=== PATIENT | female | born 2000 | race Two or more races ===

== ENCOUNTER 2024-08-16 11:17 | Emergency (ER) | payer MEDICAID, SELFPAY ==
--- NOTE | 2024-08-16 11:46 | XR_ITS ---
Examination: Complete OB ultrasound greater than 14 weeks Date and time of exam: August 16, 2024 1243 hours INDICATIONS: Onset of pelvic pain and vaginal bleeding today Findings: Viable intrauterine single fetus with single amniotic sac presentation cephalic Cardiac motion 138 BPM Placenta posterior grade 1 Umbilical cord insertion 3 vessel seen Amniotic fluid adequate spine maternal right Cervix 4.4 cm Ovaries obscured by bowel gas Incidental note 9 x 5 x 7 mm cyst in the soft tissue left neck. Composite estimated gestational age based on BPD, head circumference, abdominal circumference, femur length is 16 weeks 4 days Estimated weight 154 g. Survey of intracranial anatomy, spinal anatomy, abdominal anatomy, four-chamber heart performed with no abnormalities identified. Impression: Viable intrauterine gestation cephalic presentation Recommend two-week follow-up pelvic sonography to document stability of small cyst in the soft tissue left neck.
[2024-08-16 11:48] VITALS: BP 102/65; PULSE 99; RESP 16; TEMP 36.9; O2SAT 99; BMI 19.5
--- NOTE | 2024-08-16 11:48 | EDNOTE_ITS ---
ED OB Contraction Preg RMI/HPI General Chief complaint: OB/Uterine Contractions Stated complaint: VAGINAL BLEEDING/ CRAMPING X 1 DAY; PREG 3-4 MOS Time Seen by Provider: 08/16/24 11:36 Source: patient Arrival date/time: 08/16/24 11:17 24-year-old female with no known medical history presents to the emergency room with a chief complaint of vaginal bleeding and abdominal cramping x 2 days. Patient does not know her last menstrual period, and states she is roughly around 12 weeks . She is a G1, P0. Mode of arrival: ambulatory Limitations: no limitations Related Data Allergies Allergy/AdvReac Type Severity Reaction Status Date / Time No Known Allergies Allergy Verified 08/16/24 11:23 Review of Systems Review of Systems Systems Reviewed: All systems reviewed, normal except as documented Constitutional Constitutional: Reports system reviewed and no additional complaints, except as documented, Denies fatigue, Denies fever(s), Denies headache(s) and Denies weakness Eyes Eyes: Reports system reviewed and no additional complaints, except as documented, Denies blurry vision and Denies change in vision ENT Ears, Nose, Mouth, and Throat: Reports system reviewed and no additional complaints, except as documented, Denies otalgia, Denies headache(s), Denies nasal congestion, Denies throat swelling and Denies vertigo Cardiovascular Cardiovascular: Reports system reviewed and no additional complaints, except as documented, Denies chest pain, Denies dyspnea and Denies dyspnea on exertion Respiratory Respiratory: Reports system reviewed and no additional complaints, except as documented, Denies chest congestion, Denies cough, Denies dyspnea, Denies dyspnea on exertion and Denies wheezing Gastrointestinal Gastrointestinal: Reports system reviewed and no additional complaints, except as documented, Reports abdominal pain, Reports cramping, Denies nausea and Denies vomiting Genitourinary Genitourinary: Reports system reviewed and no additional complaints, except as documented Musculoskeletal Musculoskeletal: Reports system reviewed and no additional complaints, except as documented and Denies back pain Integumentary/Breasts Skin/Breast: Reports system reviewed and no additional complaints, except as documented and Denies wounds Neurologic Neurologic: Reports system reviewed and no additional complaints, except as documented, Denies confusion, Denies headache(s), Denies lack of coordination, Denies vertigo and Denies weakness Psychiatric Psychiatric: Reports system reviewed and no additional complaints, except as documented, Denies anxiety, Denies confusion, Denies depression, Denies paranoia, Denies suicidal ideation and Denies tactile hallucinations Endocrine Endocrine: Reports system reviewed and no additional complaints, except as documented and Denies fatigue Hematologic/Lymphatic Hematologic/Lymphatic: Reports system reviewed and no additional complaints, except as documented and Denies lymphadenopathy Allergic/Immunologic Allergic/Immunologic: Reports system reviewed and no additional complaints, except as documented, Denies throat swelling, Denies urticaria and Denies wheezing ED Exam General Limitations: Present no limitations General appearance: Present alert and in no apparent distress Head Head exam: Present atraumatic Eye Eye exam: Present normal appearance, PERRL and EOMI ENT ENT exam: Present normal exam, normal oropharynx and mucous membranes moist Neck Neck exam: Present normal inspection, full ROM and trachea midline Chest Chest inspection: Present normal inspection and symmetric chest wall rise Respiratory Respiratory exam: Present normal lung sounds bilaterally Cardiovascular Cardiovascular exam: Present regular rate, normal rhythm and normal heart sounds Abdominal Exam Abdominal exam: Present soft, tenderness and normal bowel sounds Abdominal tenderness: Present suprapubic and mild Extremities Exam Extremities exam: Present normal inspection and full ROM Back Exam Back exam: Present normal inspection and full ROM Neurological Exam Neurological exam: Present alert, oriented X3 and CN II-XII intact Psychiatric Psychiatric exam: Present normal affect and normal mood Skin Skin exam: Present warm, dry, intact and normal color Course Quality Measures none Orders Category Date Time Status US OB >= 14 weeks Fetus Stat Exams 08/16/24 11:46 Completed ABO/RH Type Stat Lab 08/16/24 12:12 Completed Beta HCG,Quantitative Stat Lab 08/16/24 12:12 Completed CBC Stat Lab 08/16/24 12:12 Completed CMP [Comprehensive Metabolic Panel] Stat Lab 08/16/24 12:12 Completed Vital Signs Vital signs: Vital Signs Temperature 98.5 F 08/16/24 11:48 Pulse Rate 99 08/16/24 11:48 Respiratory Rate 16 08/16/24 11:48 Blood Pressure 102/65 08/16/24 11:48 Pulse Oximetry (%) 99 08/16/24 11:48 Oxygen Delivery Method Room Air 08/16/24 11:48 O2 saturation within normal limits OB/Uterine Contractions MDM Narrative MDM Narrative:: 24-year-old female with no known medical history presents to the emergency room with a chief complaint of vaginal bleeding and abdominal cramping x 2 days. Patient does not know her last menstrual period, and states she is roughly around 12 weeks . She is a G1, P0. Ultrasound OB was completed and shows a viable intrauterine gestation in cephalic presentation. heart tones are 130 bpm the patient is currently 16 weeks and 4 days. hCG levels are 71,409 Patient was discharged and educated to follow-up with primary care provider in the next 24 to 48 hours and return to the emergency room for any evidence of worsening signs or symptoms Patient data External records reviewed:: [facility] previous records Clinical information provided by:: patient Social determinants that could affect healthcare access:: none Patient has the following chronic illnesses:: No chronic illness How is presenting disease/condition affected by chronic disease/condition?: no chronic disease Evaluation data The following diagnostics were reviewed and interpreted by me:: lab results and radiology exam(s) Lab and/or radiology exams considered but not ordered:: Labs and radiology exams considered and ordered Interpretation Summary: Ultrasound OB-Findings: Viable intrauterine single fetus with single amniotic sac presentation cephalic Cardiac motion 138 BPM Placenta posterior grade 1 Umbilical cord insertion 3 vessel seen Amniotic fluid adequate spine maternal right Cervix 4.4 cm Ovaries obscured by bowel gas Incidental note 9 x 5 x 7 mm cyst in the soft tissue left neck. Composite estimated gestational age based on BPD, head circumference, abdominal circumference, femur length is 16 weeks 4 days Estimated weight 154 g. Survey of intracranial anatomy, spinal anatomy, abdominal anatomy, four-chamber heart performed with no abnormalities identified. Impression: Viable intrauterine gestation cephalic presentation Recommend two-week follow-up pelvic sonography to document stability of small cyst in the soft tissue left neck. Medications / Prescriptions Medications or Prescriptions considered but not ordered:: No medication given Medication administrations:: No medication given Consultations Consultation(s) initiated? (list below): No Diagnosis OB Contractions Differential Diagnosis: other (Abdominal cramping in /threatened /spontaneous /) Most likely diagnosis given after review of the tests above:: Abdominal cramping in Admission Indicated Admission indicated?: not indicated Explain why admission is indicated or not indicated:: N/A Admission Request Was there a request for admission?: No Disposition Plan Disposition Plan: Discharge Discharge Attestation Discharge Attestation: The patient and all family members were given an opportunity to ask questions and understood the discharge instructions. Discharge instructions specifically effects, indications for sooner follow up or return to the emergency department, and the expected course of current diagnosis. Patient condition: Stable Discharge Plan Plan Patient Disposition: HOME (Self Care) Disposition Comment: Stable Prescriptions/Referrals Referrals: No Primary/Family,Physician [Primary Care Provider] - In 1 week Problem List Clinical Impression: Abdominal cramping affecting Patient/Caregiver Discharge Instructions Education Materials: Comfort Tips During Additional Instructions: Please follow-up with your SOFTWARE DEVELOPMENT PROJECT MANAGER in the next 24 to 48 hours. For any evidence of worsening signs or symptoms return to the emergency room immediately Print Language: French Stand Alone Forms: Jazlyn Award Info., Patient Portal Info Letter PA/EQUIPMENT MECHANIC SPECIALIST Supervising Physician PA/EQUIPMENT MECHANIC SPECIALIST Supervising Physician: Dr. Leonard
[2024-08-16 12:34] LABS: Basophils % (Auto) 0 % (0-2.5); Eosinophils # (Auto) 0.1 Thou/mm3 (0.0-0.5); Eosinophils % (Auto) 1 % (0-10); Hematocrit 33.8 % (36.0-46.0); Hemoglobin 11.6 g/dL (12.0-16.0); Immature Granulocytes % (Auto) 0 % (0-0); Immature Granulocytes Auto 0.02 Thou/mm3 (0.00-0.00); Lymphocytes % (Auto) 26 % (10-50); Mean Corpuscular HGB Conc 34.3 g/dl (31.0-37.0); Mean Corpuscular Volume 93 fL (80-100); Monocytes # (Auto) 0.5 Thou/mm3 (0.0-0.8); Monocytes % (Auto) 6 % (0-12); Neutrophils # (Auto) 5.3 Thou/mm3 (1.8-7.7); Neutrophils % (Auto) 67 % (37-80); Nucleated Red Blood Cell % 0 /100 WBC (0); Platelet Count 247 Thou/mm3 (140-440); RDW Standard Deviation 43.5 fL (36.4-46.3); Red Blood Count 3.62 Miln/mm3 (4.00-5.20)
[2024-08-16 13:11] LABS: Alanine Aminotransferase 22 U/L (10-49); Albumin, Serum 3.9 gm/dL (3.5-5.0); Albumin/Globulin Ratio 1.5 (1.2-2.2); Alkaline Phosphatase 62 U/L (46-116); Anion Gap 10 (7-16); Aspartate Amino Transferase 25 U/L (0-34); BUN/Creatinine Ratio 10 Ratio (12-20); Bilirubin,Total 0.3 mg/dL (0.3-1.2); Blood Urea Nitrogen 5 mg/dL (9-23); Calcium 8.8 mg/dL (8.3-10.6); Calcium (Corrected) 8.9 mg/dL (8.5-10.1); Carbon Dioxide 22.4 mMol/L (20.0-31.0); Chloride 104 mMol/L (98-107); Creatinine (Component) 0.5 mg/dL (0.6-1.3); Estimated Creatinine Clearance 130.6 mL/min (>60); Globulin 2.6 gm/dL (2.3-3.5); Glucose 81 mg/dL (74-106); Osmolality,Calculated 268 (275-295); Potassium 3.7 mMol/L (3.4-5.1); Sodium 136 mMol/L (136-145); Total Protein 6.5 gm/dL (5.7-8.2); eGFR > 60 See Note
== END 2024-08-16 14:34 | disposition home or self-care (01) ==
PROVIDERS: Nurse Practitioner Family; Emergency Provider Emergency Medicine
DX: O26.891 Other specified pregnancy related conditions, first trimester (principal); Z3A.12 12 weeks gestation of pregnancy; R10.9 Unspecified abdominal pain
CPT/HCPCS: 36415; 76805; 80053; 81001; 84702; 85025; 86900; 86901; 99284

== ENCOUNTER 2024-09-01 10:56 | Outpatient (AMB) | payer MEDICAID, SELFPAY ==
--- NOTE | 2024-09-01 11:30 | OBCLNT_ITS ---
Vital Signs 09/01/24 11:31 Height 1.55 m Height Method Stated Weight 49.895 kg Weight Measurement Method Standing Scale BMI 20.7 BP 99/85 H Blood Pressure Source Automatic Cuff Blood Pressure Location Left Upper Arm Position Sitting Respiration 18 Pulse 71 Pulse Source Monitor Temp 97.2 F Temp Source Oral Pulse Oximetry (%) 98 Oxygen Delivery Method Room Air Allergies/Home Meds Allergies & Medications Allergies No Known Allergies Allergy (Verified 09/01/24 11:43) Medication Reconciliation No Known Home Medications 09/01/24 [History Confirmed 09/01/24] Intake Visit Data Collection New Patient or Established: Established Patient (seen at [facility] within 3 years) Reason for Visit:: New OB Seen by Clinical Staff ONLY (RN/MA): No Tumbler Tender Required: Yes Tumbler Tender's name/title: YENY GONSALEZ/ CREDIT REFERENCE CLERK Do You Feel Safe at Home: Yes Authorities Contacted: N/A PCP or OBGYN visit in last 3 months: Yes Date of Last PCP or OBGYN visit: 08/16/24 Hx Now: Yes Are you currently on any form of Control: No Pain Present Currently: No Pain Scale Used: Buchanan-Watson/Numerical Pain scale:: 0 Smoking Status Smoking Status: Never smoker Questionnaires Covid-19 Vaccine Questionnaire Has patient been vacinated for Covid-19 Have you been vacinated for Covid-19: Yes PHQ-9 PHQ-2 Over the last 2 weeks, how often have you been bothered by any of the following problems? 1. Little interest or pleasure in doing things: not at all 2. Feeling down, depressed, or hopeless: not at all Total score: 0 PHQ-9 3. Trouble falling or staying asleep, or sleeping too much: Not at all 4. Feeling tired or having little energy: Not at all 5. Poor appetite or overeating: Not at all 6. Feeling bad about yourself - or that you are a failure or have let yourself or your family down: Not at all 7. Trouble concentrating on things, such as reading the newspaper or watching television: Not at all 8. Moving or speaking so slowly that other people could have noticed? - Or the opposite - being so fidgety or restless that you have been moving around a lot more than usual: not at all 9. Thoughts that you would be better off or of hurting yourself in some way: Not at all Total score: 0 If you checked off any problems, how difficult have these problems made it for you to do your work, take care of things at home, or get along with other people?: not difficult at all Source: Developed by Drs. Thang Marsh, Cece Saleem, Stanley Rivera and colleagues, with an educational miguelina from [employer]. Depression screen completed yes Social History Living Situation History Marital Status: Lives With: Family Housing: House Tobacco History Smoking Status: Never smoker Alcohol History Alcohol Intake: Never Domestic Abuse History Do You Feel Safe at Home: Yes Past Medical History Past Medical History Have you ever been diagnosed with any of the following: History of Present Illness HPI Narrative Ludmila Schneider, a 24-year-old female, presents to establish care. She was recently seen in the emergency room on 08-16-2024 with complaints of pelvic pain and vaginal bleeding. At that time, an ultrasound confirmed an intrauterine of 16 weeks and 4 days. The ultrasound also incidentally noted a 9x5x7 mm cyst in the soft tissue of the neck. Based on that ultrasound, she is now estimated to be 18 weeks and 6 days gestation with an estimated due date of January 27, 2025. The patient reports that the vaginal bleeding she experienced during her ER visit has now stopped. This is her first . She is not currently taking PNVs OB Initial Visit OB Flowsheet OB Flowsheet Initial Weight: Not Recorded Date -?-?-?-?-?-?-?-?-?-?-?-?- EGA Weight Edema CTX Effacement BP Fundal ht Pres Dilation Effacement Station Visit Note Alb Glu FHR Mov 09/01/24 -?-?-?-?-?-?-?-?-?-?-?-?- 18w 6d 49.895 kg 99/85 . New OB visit. NIPT, labs, PNVs. . New OB visit. NIPT, Pr enatal labs, PNVs. Educated the patient on the importance o f care, including taking vitamins with folic acid, iron, and calcium. Emphasized avoiding alcohol, smoking, and certain medications. Discussed common symptoms like nausea and fatigue, advising small, frequent meals and adequate hydration. Explained the need for regular check-ups and recommended safe physical activities. Instructed on signs of complications, such as severe cramping or bleeding, and when to seek immediate medical attention. Highlighted the importance of a balanced diet and avoiding high-risk foods. Encouraged open communication about any concerns or questions. Encouraged keeping up with all appointments and tests. 167 Menstrual History Menstrual reliability: definite Flow: normal Menstrual regularity: regular Monthly: Yes On control pills at conception: No OB History : 1 Para: 0 Infection History & Risk Evaluation History of STDs: none HIV risk evaluation: low risk Hepatitis B risk evaluation: low risk Patient or partner has history of Genital Herpes: No Varicella/chicken pox status: immunized Genetic Screening & History Genetic Screening/Teratology Counseling - Includes patient, baby's father, or anyone in either family with: 1. Patient's age 35 years or older as of estimated date of delivery: No 2. Thalassemia (Bengali, [place]er, Mediterranean, or Background); MCV less than 80: No 3. Neural Tube Defect (Meningomyelocele, Spina Bifida, or Anencephaly): No 4. Congenital Heart Defect: No 5. Down Syndrome: No 6. Bernardo-Sachs (Ashkenazi [place]ian, Cajun, Romanian St [place]ian): No 7. Cherrie Disease (Ashkenazi [place]ian): No 8. Familial Dysautonomia (Ashkenazi Presyb[place]ian): No 9. Sickle Cell Disease or Trait (): No 10. Hemophilia or other blood disorders: No 11. Muscular Dystrophy: No 12. Cystic Fibrosis: No 13. [place]'s Chorea: No 14. Mental Retardation/Autism: No 15. Other inherited genetic or chromosomal disorder: No 16. Maternal Metabolic Disorder (EG,TYPE 1 Diabetes, PKU): No 17. Patient or baby's father had a child with defects not listed above: No 18. Recurrent loss or a stillbirth: No 19. Medications (including supplements, vitamins, herbs or otc drugs)/illicit/recreational drugs/alcohol since last menstrual period: No 20. Any other: No Infection History 1. Live with someone with TB or exposed to TB: No 2. Rash or viral illness since last menstrual period: No 3. Hepatitis B,C: No Other (see comments) Source: [employer] Exam General Limitations: no limitations General Appearance: alert, in no apparent distress, comfortable, cooperative, healthy appearing, well developed and well groomed Head Head exam: atraumatic, normocephalic and normal inspection Neck Neck exam: Present normal inspection, full ROM and trachea midline Chest Chest inspection: Present normal inspection and symmetric chest wall rise Abdominal Abdominal exam: Present soft and normal bowel sounds Back Back exam: Present normal inspection and full ROM Psych Psychiatric exam: Present normal affect and normal mood Skin Skin exam: Present warm, dry, intact and normal color Assessment & Plan Diagnosis / Problem List (1) Supervision of high risk , unspecified, first trimester: Status: Acute (2) Maternal care for (suspected) central nervous system malformation or damage in fetus, unspecified, not applicable or unspecified: Status: Acute Plan Intrauterine at 18 weeks 6 days Patient is a 24-year-old presenting for initial care. Based on the ultrasound performed in the ER on 08/16/2024, the patient was noted to have an intrauterine of 16 weeks 4 days. Current gestational age is calculated at 18 weeks 6 days with an estimated due date of January 27, 2025. A quick bedside ultrasound was performed today, confirming cardiac activity and gestational age of approximately 19 weeks. - Perform NIPT (Non-Invasive Testing) - Prescribe vitamins to be filled at [facility] pharmacy - Schedule follow-up appointment in 4 weeks - Complete necessary lab work (specifics not mentioned in transcript) neck cyst Incidental finding of a 9x5x7 mm cyst in the soft tissue of the neck was noted during the ER ultrasound on 08/16/2024. - No specific plan discussed for this finding in the transcript History of pelvic pain and vaginal bleeding Patient was seen in the ER on 08/16/2024 with complaints of pelvic pain and vaginal bleeding. During today's visit, it was confirmed that the bleeding has now stopped. - No specific plan discussed for this resolved issue Office Procedures OB Clinic LOC & Office Proc's Nursing/Assessment Patient Status: Established Patient OB Clinic Nursing Assessment: BP Monitoring, Medication Reconciliation, Update PMH in EMR and Vital Signs OB Clinic Coordination of Care: Consent,records obtained, informed consent, Education Simp Pt/Fam, Lab and Imaging orders and Staff clarify orders Established Patient Charge Established Patient Point Assignment: 90 Established Patient Point Charge: EP Level 3 (80-115) Bedside Ultrasounds US Transabdominal >14 weeks at bedside: Yes
[2024-09-01 11:31] VITALS: BP 99/85; PULSE 71; RESP 18; TEMP 36.2; O2SAT 98; BMI 20.7
== END 2024-09-01 11:42 | disposition home or self-care (01) ==
LOC: HODSOBC 10:56
PROVIDERS: Supervising Provider Obstetrics & Gynecology; Visit Provider Obstetrics & Gynecology
DX: O09.892 Supervision of other high risk pregnancies, second trimester (principal); O35.00X0 Maternal care for (suspected) central nervous system malformation or damage in fetus, unspecified, not applicable or unspecified; O33.7XX0 Maternal care for disproportion due to other fetal deformities, not applicable or unspecified; Z3A.18 18 weeks gestation of pregnancy
CPT/HCPCS: 76805; 99213; G0463

== ENCOUNTER 2024-09-07 14:59 | Outpatient (AMB) | payer MEDICAID, SELFPAY ==
[2024-09-07 15:17] VITALS: BP 92/64; PULSE 71; RESP 14; TEMP 36.6; O2SAT 98; BMI 20.6
--- NOTE | 2024-09-07 15:17 | AMB.GYNCLNOT ---
Vital Signs 09/07/24 15:17 Height 1.55 m Height Method Stated Weight 49.555 kg Weight Measurement Method Standing Scale BMI 20.6 BP 92/64 Blood Pressure Source Automatic Cuff Blood Pressure Location Left Upper Arm Position Sitting Respiration 14 Pulse 71 Pulse Source Monitor Temp 97.9 F Temp Source Oral Pulse Oximetry (%) 98 Oxygen Delivery Method Room Air Allergies/Home Meds Allergies & Medications Allergies No Known Allergies Allergy (Verified 09/07/24 15:19) Medication Reconciliation vitamins with calcium no.72-iron 29 mg-folic acid 1 mg tablet ( Plus) 1 tab PO QDAY 90 days #90 tabs 09/07/24 [Rx] Intake Visit Data Collection New Patient or Established: Established Patient (seen at [facility] within 3 years) Reason for Visit:: Follow-up from previous visit, abnormal NIPT result positive for trisomy 21 Seen by Clinical Staff ONLY (RN/MA): No Studio Operation Engineer Required: Yes Studio Operation Engineer's name/title: YENY GONSALEZ Do You Feel Safe at Home: Yes Authorities Contacted: N/A PCP or OBGYN visit in last 3 months: Yes Hx Now: Yes Are you currently on any form of Control: No Pain Present Currently: No Pain Scale Used: Buchanan-Watson/Numerical Pain scale:: 0 Smoking Status Smoking Status: Never smoker Assisted Living Housekeeper history Assisted Living Housekeeper History Menstrual regularity: regular Flow: normal Monthly: Yes How many days does period last: 6 Age at menarche: 14 Currently sexually active: Yes Questionnaires Covid-19 Vaccine Questionnaire Has patient been vacinated for Covid-19 Have you been vacinated for Covid-19: Yes PHQ-9 PHQ-2 Over the last 2 weeks, how often have you been bothered by any of the following problems? 1. Little interest or pleasure in doing things: not at all 2. Feeling down, depressed, or hopeless: not at all Total score: 0 PHQ-9 3. Trouble falling or staying asleep, or sleeping too much: Not at all 4. Feeling tired or having little energy: Not at all 5. Poor appetite or overeating: Not at all 6. Feeling bad about yourself - or that you are a failure or have let yourself or your family down: Not at all 7. Trouble concentrating on things, such as reading the newspaper or watching television: Not at all 8. Moving or speaking so slowly that other people could have noticed? - Or the opposite - being so fidgety or restless that you have been moving around a lot more than usual: not at all 9. Thoughts that you would be better off or of hurting yourself in some way: Not at all Total score: 0 Source: Developed by Drs. Thang Marsh, Cece Saleem, Stanley Rivera and colleagues, with an educational miguelina from [employer]. Depression screen completed yes Social History Living Situation History Lives With: Family Housing: House Tobacco History Smoking Status: Never smoker Alcohol History Alcohol Intake: Never Domestic Abuse History Do You Feel Safe at Home: Yes Past Medical History Past Medical History Have you ever been diagnosed with any of the following: History of Present Illness HPI Narrative Ludmila Russell presents for follow-up from a previous visit. The patient was noted to have a positive trisomy 21 result on her Non-Invasive Testing (NIPT). During the visit, Dr. Agosto informed the patient about the abnormal test result, specifically the positive screening for Down syndrome. The doctor explained that this is not a definitive test and has about a 50% accuracy rate when positive. The patient was advised that a confirmatory test is necessary, which could either confirm Down syndrome or come back negative. To proceed with the confirmatory testing, a referral has been made to [facility] in [place] for further evaluation and discussion of options. The patient inquired about vitamins that were previously prescribed, indicating some confusion or concern about her medication regimen. Dr. Agosto agreed to resend the prescription to the patient's pharmacy ([facility]). Medications and Supplements - vitamins Laboratory, Imaging, and Diagnostic Test Results - Date: 09/06/2024 - NIPT: Positive for trisomy 21 - panel: Within normal limits - Hepatitis B: Negative - Hepatitis C: Negative - HIV: Negative - RPR: Non-reactive - Rubella: Immune - Blood type: O positive - Antibody screen: Negative - Gonorrhea: Negative - Chlamydia: Negative - Hemoglobin: 10.8 g/dL - Platelets: 260 Review of Systems Review of Systems Systems Reviewed: All systems reviewed, normal except as documented Exam General Limitations: no limitations General Appearance: alert, in no apparent distress, comfortable, cooperative, healthy appearing, well developed and well groomed Head Head exam: atraumatic, normocephalic and normal inspection Neck Neck exam: Present normal inspection, full ROM and trachea midline Chest Chest inspection: Present normal inspection and symmetric chest wall rise Abdominal Abdominal exam: Present soft and normal bowel sounds Psych Psychiatric exam: Present normal affect and normal mood Skin Skin exam: Present warm, dry, intact and normal color Assessment & Plan Diagnosis / Problem List (1) Trisomy 21 of fetus in current [place] : Status: Acute (2) Supervision of high risk , unspecified, first trimester: Status: Acute (3) Maternal care for (suspected) central nervous system malformation or damage in fetus, unspecified, not applicable or unspecified: Status: Acute Plan Ludmila Russell presents for follow-up from a previous visit with a positive trisomy 21 result on her NIPT (non-invasive testing). Positive NIPT for Trisomy 21 Assessment: Patient's NIPT results indicate a positive screen for trisomy 21 (Down syndrome). The rest of her panel is within normal limits. gender is male. It is important to note that this is a screening test with approximately 50% accuracy when positive, necessitating confirmatory diagnostic testing. Plan: - Referral to [facility] in [place] for further evaluation and confirmatory testing - Discussed with patient that the positive NIPT result is not definitive and requires follow-up testing - Informed patient that [facility] will contact her to schedule the appointment - [facility] will discuss all results, explain confirmatory tests, and allow patient to choose next steps - Follow-up appointment scheduled in one month to review results and reports from the referral Routine Care Assessment: Patient's screening results include: hepatitis B-negative, hepatitis C-negative, HIV-negative, RPR non-reactive, rubella immune, blood type O positive, antibody screen negative, gonorrhea and chlamydia negative. Hemoglobin is 10.8 and platelets are 260. All labs were resulted on 09-06-2024. Plan: - Continue routine care - Resend prescription for vitamins to [facility] pharmacy Office Procedures OB Clinic LOC & Office Proc's Nursing/Assessment Patient Status: Established Patient OB Clinic Nursing Assessment: Medication Reconciliation, Update PMH in EMR and Vital Signs OB Clinic Coordination of Care: Complex Care and Chronic Disease 1-5, Consent,records obtained, informed consent, Education Simp Pt/Fam, Results/Orders obtained and Staff clarify orders Special Needs: Heart tones Established Patient Charge Established Patient Point Assignment: 120 Established Patient Point Charge: EP Level 4 (120-155)
== END 2024-09-07 15:45 | disposition home or self-care (01) ==
LOC: HODSOBC 14:59
PROVIDERS: Supervising Provider Obstetrics & Gynecology; Visit Provider Obstetrics & Gynecology
DX: O09.891 Supervision of other high risk pregnancies, first trimester (principal); Z3A.00 Weeks of gestation of pregnancy not specified; O35.13X0 Maternal care for (suspected) chromosomal abnormality in fetus, Trisomy 21, not applicable or unspecified; O35.00X0 Maternal care for (suspected) central nervous system malformation or damage in fetus, unspecified, not applicable or unspecified
CPT/HCPCS: 99214; G0463

== ENCOUNTER 2024-09-28 15:26 | Outpatient (AMB) | payer MEDICAID, SELFPAY ==
--- NOTE | 2024-09-28 15:03 | AMB.OBVISIT ---
Allergies/Home Meds Allergies & Medications Allergies No Known Allergies Allergy (Verified 09/07/24 15:19) Intake Smoking Status Smoking Status: Never smoker Questionnaires PHQ-9 PHQ-2 Over the last 2 weeks, how often have you been bothered by any of the following problems? 1. Little interest or pleasure in doing things: not at all PHQ-9 8. Moving or speaking so slowly that other people could have noticed? - Or the opposite - being so fidgety or restless that you have been moving around a lot more than usual: not at all Total score: 0 Source: Developed by Drs. Thang Marsh, Cece Saleem, Stanley Rivera and colleagues, with an educational miugelina from [employer]. Social History Living Situation History Lives With: Family Housing: House Tobacco History Smoking Status: Never smoker Alcohol History Alcohol Intake: Never Past Medical History Past Medical History Have you ever been diagnosed with any of the following: Care OB Visit Log OB Flowsheet Initial Weight: Not Recorded Date <del>?</del> EGA Weight Edema CTX Effacement BP Fundal ht Pres Dilation Effacement Station Visit Note Alb Glu FHR Mov 09/01/24 <del>?</del> 18w 6d 49.895 kg 99/85 . New OB visit. NIPT, labs, PNVs. . New OB visit. NIPT, labs, PNVs. Educated the patient on the importance of care, including taking vitamins with folic acid, iron, and calcium. Emphasized avoiding alcohol, smoking, and certain medications. Discussed common symptoms like nausea and fatigue, advising small, frequent meals and adequate hydration. Explained the need for regular check-ups and recommended safe physical activities. Instructed on signs of complications, such as severe cramping or bleeding, and when to seek immediate medical attention. Highlighted the importance of a balanced diet and avoiding high-risk foods. Encouraged open communication about any concerns or questions. Encouraged keeping up with all appointments and tests. 167 WALDEMAR Calculator Estimated Delivery Date Method Current WG Current Estimate 01/27/25 LMP (Certain) 22w 5d Other Estimates 01/27/25 Ultrasound #1 22w 5d
--- NOTE | 2024-09-28 15:37 | OBCLNT_ITS ---
Vital Signs 09/28/24 15:50 Height 1.55 m Height Method Stated Weight 52.163 kg Weight Measurement Method Standing Scale BMI 21.7 BP 105/64 Blood Pressure Source Automatic Cuff Blood Pressure Location Left Upper Arm Position Sitting Respiration 18 Pulse 84 Pulse Source Monitor Temp 97.9 F Temp Source Oral Pulse Oximetry (%) 96 Oxygen Delivery Method Room Air Allergies/Home Meds Allergies & Medications Allergies No Known Allergies Allergy (Verified 09/28/24 19:16) Medication Reconciliation vitamins with calcium no.72-iron 29 mg-folic acid 1 mg tablet ( Plus) 1 tab PO QDAY 90 days #90 tabs 09/07/24 [Rx Confirmed 09/28/24] Intake Visit Data Collection New Patient or Established: Established Patient (seen at [facility] within 3 years) Reason for Visit:: Leakage of fluid, leaking like a water leaking Seen by Clinical Staff ONLY (RN/MA): No Mine Promotor Required: Yes Mine Promotor's name/title: VARINDER OLGA Do You Feel Safe at Home: Yes Authorities Contacted: N/A PCP or OBGYN visit in last 3 months: Yes Hx Now: Yes Are you currently on any form of Control: No Pain Present Currently: No Pain Scale Used: Buchanan-Watson/Numerical Pain scale:: 0 Smoking Status Smoking Status: Never smoker Questionnaires Covid-19 Vaccine Questionnaire Has patient been vacinated for Covid-19 Have you been vacinated for Covid-19: Yes PHQ-9 PHQ-2 Over the last 2 weeks, how often have you been bothered by any of the following problems? 1. Little interest or pleasure in doing things: not at all 2. Feeling down, depressed, or hopeless: not at all Total score: 0 PHQ-9 3. Trouble falling or staying asleep, or sleeping too much: Not at all 4. Feeling tired or having little energy: Not at all 5. Poor appetite or overeating: Not at all 6. Feeling bad about yourself - or that you are a failure or have let yourself or your family down: Not at all 7. Trouble concentrating on things, such as reading the newspaper or watching television: Not at all 8. Moving or speaking so slowly that other people could have noticed? - Or the opposite - being so fidgety or restless that you have been moving around a lot more than usual: not at all 9. Thoughts that you would be better off or of hurting yourself in some way: Not at all Total score: 0 Source: Developed by Drs. Thang Marsh, Cece Saleem, Stanley Rivera and colleagues, with an educational miguelina from [employer]. Depression screen completed yes Social History Living Situation History Lives With: Family Housing: House Tobacco History Smoking Status: Never smoker Alcohol History Alcohol Intake: Never Domestic Abuse History Do You Feel Safe at Home: Yes Past Medical History Past Medical History Have you ever been diagnosed with any of the following: History of Present Illness HPI Narrative - Ludmila Russell is a 24-year-old 1 para 0 presenting for a visit at 22 weeks and 5 days gestation. - Patient had a previous visit where maternity 21 test was positive for trisomy 21. - She was referred to [facility] for a [id number] consult. - Patient had an appointment with maternal- medicine on 09/20/2024: - Anatomy ultrasound and amniocentesis were performed. - Multiple abnormalities were noted on ultrasound. - Genetic amniocentesis was done, results pending. - Patient has a follow-up appointment with maternal- medicine on October 04 to review amniocentesis results. - Today, patient is complaining of fluid leakage. - Patient reports her pants become wet. No contractions/ LOF/VB, reports good FM No GARRETT/VC/RUQ/Epig pain Care OB Visit Log OB Flowsheet Initial Weight: Not Recorded Date -?-?-?-?-?-?-?-?-?-?-?-?- EGA Weight Edema CTX Effacement BP Fundal ht Pres Dilation Effacement Station Visit Note Alb Glu FHR Mov 09/01/24 -?-?-?-?-?-?-?-?-?-?-?-?- 18w 6d 49.895 kg 99/85 . New OB visit. NIPT, labs, PNVs. . New OB visit. NIPT, Pr enatal labs, PNVs. Educated the patient on the importance o f care, including taking vitamins with folic acid, iron, and calcium. Emphasized avoiding alcohol, smoking, and certain medications. Discussed common symptoms like nausea and fatigue, advising small, frequent meals and adequate hydration. Explained the need for regular check-ups and recommended safe physical activities. Instructed on signs of complications, such as severe cramping or bleeding, and when to seek immediate medical attention. Highlighted the importance of a balanced diet and avoiding high-risk foods. Encouraged open communication about any concerns or questions. Encouraged keeping up with all appointments and tests. 167 09/28/24 -?-?-?-?-?-?-?-?-?-?-?-?- 22w 5d 52.163 kg 105/64 Lilly dalton Russell, 24 y/o at 22w5d, presents with concern for fluid leakage. She previously screened positive for trisomy 21 via Maternity 21 test and was referred to [facility] at [facility]. On 09/20/2024, she underwent anatomy ultrasound and amniocentesis. 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 A large left ovarian cyst was also identified. Patient reports her pants are wet, raising concern for possible PROM. She denies contractions or pain, and movement is reported as good. Awaiting amniocentesis and echo results. Plan: Send patient to labor and delivery for e valuation of suspected PROM, including FREDI and confirmatory testing Monitor for signs of labor or infection Follow up after October 04 following [facility] con sultation and amniocentesis result review Await echocardiogram results from cardiology referral Continue surveillance of left ovarian cy st (currently simple, ~8 cm) Reinforce education on labor signs and precautions WALDEMAR Calculator Estimated Delivery Date Method Current WG Current Estimate 01/27/25 LMP (Certain) 23w 0d Other Estimates 01/27/25 Ultrasound #1 23w 0d Assessment & Plan Diagnosis / Problem List (1) with 22 completed weeks gestation: Status: Acute (2) Maternal care for (suspected) chromosomal abnormality in fetus, trisomy 13, not applicable or unspecified: Status: Acute (3) cardiac anomaly affecting , antepartum: Status: Acute (4) Unspecified ovarian cyst, left side: Status: Acute (5) Premature rupture of membranes, unspecified as to length of time between rupture and onset of labor, unspecified weeks of gestation: Status: Acute Plan Problem List - , 22 weeks and 5 days - Suspected Down syndrome - cardiac abnormalities - central nervous system abnormalities - skeletal abnormalities - Left ovarian cyst - Suspected premature rupture of membranes Assessment - at 22 weeks and 5 days gestation, - Positive screening for trisomy 21 (Down syndrome) - Abnormal anatomy ultrasound findings: - Nuchal fold thickening >6mm - Suboptimal cavum septum pellucidum - Hypoplastic nasal bone - Suboptimal ductal arch and intraventricular septum - Dangling choroids - Dilated lateral ventricle (10.2mm), frontal horns, and 3rd ventricle - 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 - 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 - Short humerus and short femur - Left ovarian cyst (8.39 x 7.87 x 8.13 cm), simple without solid components - Possible premature rupture of membranes (patient reporting fluid leakage) Plan - Patient to be sent to labor and delivery for amniocentesis testing and amniotic fluid index (FREDI) due to complaints of fluid leakage - Follow-up appointment to be scheduled after October 04, following patient's maternal- medicine consultation for review of amniocentesis results - Await results of echocardiogram from cardiology referral - Continue monitoring left ovarian cyst (8.39 x 7.87 x 8.13 cm) Educated the patient on labor signs, including regular contractions, lower back pain, and changes in vaginal discharge. Advised avoiding heavy lif ting and getting adequate rest. Instructed to contact the office immediately if any signs occur. Discussed the importance of a balanced diet rich in folic acid, iron, and calcium, and provided a list of recommended and to-avoid foods. Emphasized avoiding high-sugar foods to reduce gestational diabetes risk. Encouraged hydration and frequent, small meals for energy.. Office Procedures OB Clinic LOC & Office Proc's Nursing/Assessment Patient Status: Established Patient OB Clinic Nursing Assessment: Medication Reconciliation, Update PMH in EMR and Vital Signs OB Clinic Coordination of Care: Complex Care and Chronic Disease 1-5, Consent ,records obtained, informed consent, Education Simp Pt/Fam, Results/Orders obtained and Staff clarify orders Special Needs: Heart tones Established Patient Charge Established Patient Point Assignment: 120 Established Patient Point Charge: EP Level 4 (120-155)
[2024-09-28 15:50] VITALS: BP 105/64; PULSE 84; RESP 18; TEMP 36.6; O2SAT 96; BMI 21.7
== END 2024-09-28 16:19 | disposition home or self-care (01) ==
LOC: HODSOBC 15:26
PROVIDERS: Supervising Provider Obstetrics & Gynecology; Visit Provider Obstetrics & Gynecology
DX: O09.892 Supervision of other high risk pregnancies, second trimester (principal); Z3A.22 22 weeks gestation of pregnancy; O35.19X0 Maternal care for (suspected) chromosomal abnormality in fetus, other chromosomal abnormality, not applicable or unspecified; O35.BXX0 Maternal care for other (suspected) fetal abnormality and damage, fetal cardiac anomalies, not applicable or unspecified; O34.82 Maternal care for other abnormalities of pelvic organs, second trimester; N83.202 Unspecified ovarian cyst, left side; O42.912 Preterm premature rupture of membranes, unspecified as to length of time between rupture and onset of labor, second trimester
CPT/HCPCS: 99214; G0463

== ENCOUNTER 2024-09-28 16:21 | Observation (INO) | payer MEDICAID, SELFPAY ==
[2024-09-28] VITALS (25 sets, daily range): BP systolic 100–104; BP diastolic 55–56; PULSE 76–91; RESP 18–99; TEMP 36.9; O2SAT 98–100; BMI 23.2
--- NOTE | 2024-09-28 17:27 | XR_ITS ---
Examination: Complete OB ultrasound greater than 14 weeks Date and time of exam: September 28, 2024 1744 hours INDICATIONS: Leaking amniotic fluid beginning 3 hours ago, labor evaluation Findings: Viable intrauterine single fetus with single amniotic sac presentation breech Cardiac motion 152 BPM Placenta posterior grade 2 Umbilical cord insertion 3 vessel seen Amniotic fluid index 17.7 cm Mild bilateral hydronephrosis spine maternal right Surgery 4.5 cm Right [bowel gas Left ovary 9.7 cm, 9.0 x 6.9 x 7.4 cm simple cyst. Composite estimated gestational age based on BPD, head circumference, abdominal circumference, femur length is 22 weeks 4 days Estimated weight 491 g. Survey of intracranial anatomy, spinal anatomy,, four-chamber heart performed with no abnormalities identified. Impression: Viable intrauterine gestation breech presentation Mild hydronephrosis Estimated gestational age 22 weeks 4 days Large left ovarian simple cyst
[2024-09-28 17:57] LABS: ROM Kit Lot # 57807112
[2024-09-28 17:58] LABS: ROM Swab Mixed By: YOUNB; Rupture of Fetal Membranes Negative (Negative); Swb Mxed in Solvent 1 min? Yes
== END 2024-09-28 19:11 | disposition home or self-care (01) ==
PROVIDERS: Admitting Provider Obstetrics & Gynecology; PCP Family Medicine; Visit Provider Obstetrics & Gynecology
DX: Z34.02 Encounter for supervision of normal first pregnancy, second trimester (principal); Z3A.22 22 weeks gestation of pregnancy
CPT/HCPCS: 59025; 59899; 76805; 84112

== ENCOUNTER 2024-11-18 14:07 | Outpatient (AMB) | payer MEDICAID, SELFPAY ==
[2024-11-18 14:26] VITALS: BP 107/66; PULSE 81; RESP 17; TEMP 36.6; O2SAT 98
--- NOTE | 2024-11-18 14:26 | OBCLNT_ITS ---
Vital Signs 11/18/24 14:26 Weight 58.57 kg Weight Measurement Method Standing Scale BP 107/66 Blood Pressure Source Automatic Cuff Blood Pressure Location Right Upper Arm Position Sitting Respiration 17 Pulse 81 Pulse Source Monitor Temp 97.8 F Temp Source Temporal Artery Scan Pulse Oximetry (%) 98 Oxygen Delivery Method Room Air Allergies/Home Meds Allergies & Medications Allergies No Known Allergies Allergy (Verified 11/18/24 14:28) Medication Reconciliation vitamins with calcium no.72-iron 29 mg-folic acid 1 mg tablet ( Plus) 1 tab PO QDAY 90 days #90 tabs 09/07/24 [Rx Confirmed 11/18/24] blood sugar diagnostic (Blood Glucose Test strips) #100 ea 11/18/24 [Rx] blood-glucose meter #1 ea 11/18/24 [Rx] lancets #100 ea 11/18/24 [Rx] Intake Visit Data Collection New Patient or Established: Established Patient (seen at [facility] within 3 years) Reason for Visit:: OBC Seen by Clinical Staff ONLY (RN/MA): No An/Syq 13 Nav/C2 Operator Required: Yes An/Syq 13 Nav/C2 Operator's name/title: VARINDER ESPINOZA ONCOLOGY NAVIGATOR Do You Feel Safe at Home: Yes Authorities Contacted: N/A PCP or OBGYN visit in last 3 months: Yes Date of Last PCP or OBGYN visit: 11/12/24 Hx Now: Yes Are you currently on any form of Control: No Pain Present Currently: No Pain Scale Used: Buchanan-Watson/Numerical Pain scale:: 0 Smoking Status Smoking Status: Never smoker Questionnaires Covid-19 Vaccine Questionnaire Has patient been vacinated for Covid-19 Have you been vacinated for Covid-19: No PHQ-9 PHQ-2 Over the last 2 weeks, how often have you been bothered by any of the following problems? 1. Little interest or pleasure in doing things: not at all 2. Feeling down, depressed, or hopeless: not at all Total score: 0 PHQ-9 3. Trouble falling or staying asleep, or sleeping too much: Not at all 4. Feeling tired or having little energy: Not at all 5. Poor appetite or overeating: Not at all 6. Feeling bad about yourself - or that you are a failure or have let yourself or your family down: Not at all 7. Trouble concentrating on things, such as reading the newspaper or watching television: Not at all 8. Moving or speaking so slowly that other people could have noticed? - Or the opposite - being so fidgety or restless that you have been moving around a lot more than usual: not at all 9. Thoughts that you would be better off or of hurting yourself in some w ay: Not at all Total score: 0 If you checked off any problems, how difficult have these problems made it for you to do your work, take care of things at home, or get along with other people?: not difficult at all Source: Developed by Drs. Thang Marsh, Cece Saleem, Stanley Rivera and colleagues, with an educational miguelina from [employer]. Depression screen completed yes Social History Living Situation History Marital Status: Lives With: Family Housing: House Tobacco History Smoking Status: Never smoker Alcohol History Alcohol Intake: Never Domestic Abuse History Do You Feel Safe at Home: Yes History of Present Illness HPI Narrative Follow-up at 30 weeks gestation after referral for positive Down syndrome screening and cardiac abnormalities, recent interventions, newly diagnosed gestational diabetes mellitus History of Present Illness Ludmila Russell is a 24-year-old at 30 weeks and 0 days gestation, presenting for follow-up after almost 2 months. The patient was last seen at 20 weeks and referred to [facility] due to positive Down syndrome screening and cardiac abnormalities. Since her last visit, the patient has undergone multiple appointments at [facility], including a limited ultrasound with ultrasound-guided amniocentesis on November 17, 2024. The amniocentesis confirmed trisomy 21 (47xy+21). Extensive hydrops was noted, with massive bilateral pleural effusions, mediastinal shift compromising cardiac output, skin edema, tracheitis, mild polyhydramnios, mild bilateral ventriculomegaly, and a subjectively large liver. The patient underwent thoracocentesis on November 08, 2024, to address the pleural effusions. She reports having traveled to [place] twice for procedures to remove fluid from the baby's chest, affecting both the heart and lungs. A echocardiogram was also performed, revealing a possible ventricular septal defect (VSD), right heart enlargement, and good ventricular function. The patient has been newly diagnosed with gestational diabetes mellitus (GDM) based on 2 out of 4 abnormal values on a glucose tolerance test. She confirms completing the 3-hour glucose test but has not yet started any treatment for GDM. The patient is currently receiving twice-weekly surveillance and has been referred to a surgery center in [place] for further management. She has a follow-up appointment scheduled for tomorrow with her high-risk specialist. Care OB Visit Log OB Flowsheet Initial Weight: Not Recorded Date -?-?-?-?-?-?-?-?-?-?-?-?- EGA Weight BP Alb Glu CTX Pres Fundal ht FHR Mov Dilation Station Effacement Hx Notes Visit Note 09/01/24 -?-?-?-?-?-?-?-?-?-?-?-?- 18w 6d 49.895 kg 99/85 167 . New OB visit. NIPT, labs, PNVs. . New OB visit. NIPT, Pr enatal labs, PNVs. Educated the patient on the importance o f care, including taking vitamins with folic acid, iron, and calcium. Emphasized avoiding alcohol, smoking, and certain medications. Discussed common symptoms like nausea and fatigue, advising small, frequent meals and adequate hydration. Explained the need for regular check-ups and recommended safe physical activities. Instructed on signs of complications, such as severe cramping or bleeding, and when to seek immediate medical attention. Highlighted the importance of a balanced diet and avoiding high-risk foods. Encouraged open communication about any concerns or questions. Encouraged keeping up with all appointments and tests. 09/28/24 -?--?-?-?-?-?-?-?-?-?-?-?- 22w 5d 52.163 kg 105/64 105/64 Ludmila Russell, 24 y/ o at 22w5d, presents with concern for fluid leakage. She previously screened positive for trisomy 21 via Maternity 21 test and was referred to [facility] at [facility]. On 09/20/2024, she underwent anatomy ultrasound and amniocentesis. Ultrasound findings included multiple fet al anomalies concerning for trisomy 21, with cardiac, SERVICE TECH, and skeletal abnormalities. A large left ovarian cyst was also identified. Patient reports her pants are wet, raising concern for possible PROM. She denies contractions or pain, and movement is reported as good. Awaiting amniocentesis and echo results. Plan: Send patient to labor and delivery for e valuation of suspected PROM, including FREDI and confirmatory testing Monitor for signs of labor or infection Follow up after October 04 following MFM con sultation and amniocentesis result review Await echocardiogram results from cardiology referral Continue surveillance of left ovarian cy st (currently simple, ~8 cm) Reinforce education on labor signs and precautions WALDEMAR Calculator Estimated Delivery Date Method Current WG Current Estimate 01/27/25 LMP (Certain) 30w 1d Other Estimates 01/27/25 Ultrasound #1 30w 1d Specific Issue/Plans Laboratory, Imaging, and Diagnostic Test Results - Date: 11/17/2024 - Limited ultrasound with ultrasound-guided amniocentesis: - hydrops - Massive bilateral pleural effusions - Mediastinal shift - Skin edema - Tracheitis - Mild polyhydramnios - Mild bilateral ventriculomegaly - Subjectively large liver - Amniocentesis: 47xy+21 (Trisomy 21 confirmed) - Date: 11/08/2024 - Thoracocentesis performed - echocardiogram: - Possible VSD - Right heart enlargement - Good ventricular function - Glucose tolerance test: - 2 out of 4 values abnormal (GDM diagnosis) Exam General General Appearance: alert, in no apparent distress and healthy appearing Head Head exam: atraumatic Neck Neck exam: Present normal inspection and trachea midline Chest Chest inspection: Present normal inspection and symmetric chest wall rise External exam: Present normal external exam; Absent tenderness Neuro Neurological exam: Present oriented X3 Psych Psychiatric exam: Present normal affect and normal mood Office Procedures OB Clinic LOC & Office Proc's Nursing/Assessment Patient Status: Established Patient OB Clinic Nursing Assessment: Medication Reconciliation, Update PMH in EMR and Vital Signs OB Clinic Coordination of Care: Complex Care and Chronic Disease 1-5, Consent,records obtained, informed consent, Education Simp Pt/Fam and Staff clarify orders Special Needs: Heart tones Established Patient Charge Established Patient Point Assignment: 115 Established Patient Point Charge: EP Level 3 (80-115) Assessment & Plan Diagnosis / Problem List (1) Gestational diabetes mellitus: Status: Acute Plan Ludmila Russell, 24-year-old at 30 weeks 0 days gestation, presenting for follow-up with complex anomalies including Down syndrome, cardiac abnormalities, and hydrops. anomalies and complications Assessment: Patient is carrying a fetus with confirmed trisomy 21 (47xy+21) on amniocentesis. ultrasound findings include extensive hydrops with massive bilateral pleural effusions, mediastinal shift compromising cardiac output, skin edema, tracheitis, mild polyhydramnios, mild bilateral ventriculomegaly, and subjectively large liver. echocardiogram revealed possible VSD, right heart enlargement, and good ventricular function. Patient has undergone thoracocentesis twice in [place] for pleural effusions. The severity and complexity of these findings indicate a high-risk requiring specialized care and delivery at a tertiary center. Plan: - Transfer care to [facility] for specialized management and delivery - Continue twice-weekly surveillance - Follow up with surgery center in [place] for potential shunt placement - In case of emergency (e.g., premature rupture of membranes, vaginal bleeding), present to local hospital for stabilization and transfer Gestational diabetes mellitus (GDM) Assessment: Newly diagnosed GDM based on 2 out of 4 abnormal values on 3-hour glucose tolerance test. Patient has not yet initiated blood glucose monitoring or treatment. Plan: - Prescribe glucometer for home blood glucose monitoring - Instruct patient to check blood glucose 4 times daily: fasting and 1 hour after each meal - Educate patient on GDM management - Inform [facility] provider of GDM diagnosis for further management Disability paperwork Assessment: Patient requires assistance with disability paperwork related to high-risk and complications. Plan: - Complete necessary disability paperwork for patient
== END 2024-11-18 14:58 | disposition home or self-care (01) ==
LOC: HODSOBC 14:07
PROVIDERS: Supervising Provider Obstetrics & Gynecology; Visit Provider Obstetrics & Gynecology
DX: O09.893 Supervision of other high risk pregnancies, third trimester (principal); O24.419 Gestational diabetes mellitus in pregnancy, unspecified control; O35.13X0 Maternal care for (suspected) chromosomal abnormality in fetus, Trisomy 21, not applicable or unspecified; O35.BXX0 Maternal care for other (suspected) fetal abnormality and damage, fetal cardiac anomalies, not applicable or unspecified; O36.23X0 Maternal care for hydrops fetalis, third trimester, not applicable or unspecified; O35.8XX0 Maternal care for other (suspected) fetal abnormality and damage, not applicable or unspecified; O40.3XX0 Polyhydramnios, third trimester, not applicable or unspecified; Z3A.30 30 weeks gestation of pregnancy
CPT/HCPCS: 99213; G0463

== ENCOUNTER 2024-12-23 15:55 | Inpatient (IN) | payer MEDICAID, SELFPAY ==
[2024-12-23] VITALS (17 sets, daily range): BP systolic 104–120; BP diastolic 58–69; PULSE 95–117; RESP 17–96; TEMP 36.9–37.4; O2SAT 96–98; BMI 26.0
--- NOTE | 2024-12-23 17:09 | XR_ITS ---
Examination: Complete OB ultrasound greater than 14 weeks Date and time of exam: December 23, 2024, 1716 hours, INDICATIONS: No heart tone today on examination Findings: Intrauterine gestations cephalic presentation No cardiac motion Placenta posterior grade 2 No collar and umbilical cord flow Amniotic fluid index 19.1 cm Edema in the abdomen spine maternal right Cervix 3.6 cm Ovaries obscured by bowel gas Estimated gestational age 34 weeks 1 day Estimated weight 2478 g IMPRESSION: demise
--- NOTE | 2024-12-23 18:23 | PD.LDHP ---
Documentation for date of: 12/23/24 OB Labor/Induct. HPI History of Present Illness Chief complaint: No movement : 1 Para: 0 Term pregnancies: 0 pregnancies: 0 Living children: 0 History of Abortions: Spontaneous and Elective: 0 History of Vaginal deliveries: 0 History of sections: No History of : No WALDEMAR: 01/27/25 Gestational Age (weeks): 35 Gestational Age (days): 0 History of present illness: Ludmila Russell is a 24-year-old at 35 weeks and 0 days gestation, presenting to [facility] for no movement since yesterday. The RN could not get heart tones. The patient had a STAT OB sonogram and confirmed no cardiac activity, 2478g, cephalic. The fetus was followed by [facility] for fetus with Trisomy 21 with multiple anomalies. An amniocentesis confirmed trisomy 21 (47xy+21). Extensive hydrops was noted, with massive bilateral pleural effusions, mediastinal shift compromising cardiac output, skin edema, tracheitis, mild polyhydramnios, mild bilateral ventriculomegaly, and a subjectively large liver. The patient underwent thoracocentesis on November 08, 2024, to address the pleural effusions. She reports having traveled to [place] twice for procedures to remove fluid from the baby's chest, affecting both the heart and lungs. A echocardiogram was also performed, revealing a possible ventricular septal defect (VSD), right heart enlargement. The patient is GDM A1. She denies any leaking or bleeding. She denies any fever. She denies any contractions History of Present Adequate Care: Yes Obstetrical complications: other (As above) Review of Systems Review of Systems Narrative Review of Systems: Denies any chest pain palpitations cough fever shortness of breath flank pain or lower extremity pain or swelling. Past Medical History Surgical History SURGICAL: Negative Section OTHER SURGICAL HX: Amniocentesis Social History SOCIAL: Denies any alcohol drug use or smoking Meds Home Medications and Allergies Allergies Allergy/AdvReac Type Severity Reaction Status Date / Time No Known Allergies Allergy Verified 12/23/24 17:13 OB Exam Physical Exam Vital signs: Temp Pulse Resp BP Pulse Ox O2 Del Method 98.5 F 95 17 120/59 L 97 Room Air 12/23/24 17:09 12/23/24 17:48 12/23/24 17:12/23/24 17:48 12/23/24 17:38 12/23/24 17:09 Routine HEENT Exam Comments: Oropharynx and sclera clear Routine Respiratory Exam Comments: Clear to auscultation bilaterally Routine Cardiovascular Exam Comments: Regular rate and rhythm Routine Abdominal Exam Comments: Gravid with fundus at 35 cm , nontender. Detailed Labor and Delivery Exam Comments: See RN notes Routine Extremities Exam Comments: Nontender or edema Routine Skin Exam Comments: No gross rashes or lesions Routine Neurological Exam Comments: No deficits Routine Psychiatric Exam Comments: Alert and oriented OB Results Labs 12/23/24 19:40 Impressions Impression: Intrauterine demise of Trisomy 21 fetus with multiple anomalies at 35 weeks gestation Gestational diabetes mellitus A1 Induction of labor Anticipate spontaneous vaginal delivery I discussed with the patient at length in detail her options for induction of labor and trial of vaginal delivery versus delivery. She understands that induction is a process that involves cervical ripening followed in most cases by Pitocin and may take multiple days. Patient verbalized understanding and the patient elects to undergo induction of labor. Despite hydrops and pleural effusions the AC 34 cm and HC 31 cm are small enough to allow for vaginal delivery.
[2024-12-23] MEDS: RINGERS LACTATED 1000 ML 1,000 ML 100 ML IV (19:50)
[2024-12-23 20:37] LABS: Basophils # (Auto) 0.0 Thou/mm3 (0.0-0.2); Basophils % (Auto) 0 % (0-2.5); Eosinophils # (Auto) 0.1 Thou/mm3 (0.0-0.5); Eosinophils % (Auto) 1 % (0-10); Hematocrit 32.6 % (36.0-46.0); Hemoglobin 11.4 g/dL (12.0-16.0); Immature Granulocytes Auto 0.05 Thou/mm3 (0.00-0.00); Lymphocytes # (Auto) 1.5 Thou/mm3 (1.0-4.8); Lymphocytes % (Auto) 19 % (10-50); Mean Corpuscular HGB Conc 35.0 g/dl (31.0-37.0); Mean Corpuscular Hemoglobin 32.3 pg (25.0-35.0); Mean Corpuscular Volume 92 fL (80-100); Monocytes # (Auto) 1.0 Thou/mm3 (0.0-0.8); Monocytes % (Auto) 12 % (0-12); Neutrophils # (Auto) 5.4 Thou/mm3 (1.8-7.7); Neutrophils % (Auto) 67 % (37-80); Nucleated Red Blood Cell # 0.00 Thou/mm3 (0.00-0.00); Nucleated Red Blood Cell % 0 /100 WBC (0); Platelet Count 267 Thou/mm3 (140-440); RDW Standard Deviation 42.7 fL (36.4-46.3); Red Blood Count 3.53 Miln/mm3 (4.00-5.20); White Blood Count 8.0 Thou/mm3 (3.6-11.0)
[2024-12-23 23:49] LABS: Syphilis Nonreactive (Nonreactive)
[2024-12-24] VITALS (132 sets, daily range): BP systolic 101–129; BP diastolic 51–77; PULSE 79–134; RESP 16–20; TEMP 37.1–37.4; O2SAT 89–99
--- NOTE | 2024-12-24 04:45 | PC.NURSE ---
12/23/24 to 12/24/24 0400, RN precepting Tramaine Melara RN, review and agree with labor progress assessment.
[2024-12-24] MEDS: RINGERS LACTATED 1000 ML 1,000 ML 100 ML IV (04:58)
--- NOTE | 2024-12-24 06:28 | PC.NURSE ---
[phone] Precepting NEHAL Rocha I reviewed and agreed with documentation regarding contraction frequency, pain and assessment.
[2024-12-24] MEDS: fentaNYL CIT INJ 50 mCg/ML AMP 2ML 100 MCG IVP ×3 (13:35→20:27)
[2024-12-25] VITALS (159 sets, daily range): BP systolic 95–132; BP diastolic 49–81; PULSE 79–141; RESP 16–19; TEMP 36.4–37.3; O2SAT 70–98
[2024-12-25] MEDS: OXYTOCIN in NS 30 units 30 UNIT/500 ML BAG IV (08:47)
[2024-12-25] MEDS: MINERAL OIL 30 ML UDC TOP (10:02)
[2024-12-25] MEDS: LIDOCAINE HCL 1% 20 ML VIAL INFL (10:02)
[2024-12-25] MEDS: OXYTOCIN in NS 20 units 20 UNIT/1,000 ML BAG 125 UNIT IV (10:03)
[2024-12-25] MEDS: BENZO/LANO/ALOE (Dermoplast) 60 GM CAN 1 SPRAY TOP (10:04)
[2024-12-25] MEDS: TRANEXAMIC ACID 1,000 MG IVPB 1,000 MG/100 ML BAG 200 MG IV (10:33)
--- NOTE | 2024-12-25 10:44 | PD.LDDELS ---
Data (Serrano) Data Hx Section: No : 1 Term: 0 : 0 Livin Abortions: Spontaneous & Theraputic: 0 Delivery Data (Serrano) Labor Data Initiation of labor: Induction Induction/Augmentation Agent: Cervical Balloon, Pitocin and Artificial ROM ROM date: 12/25/24 ROM time: 08:20 Amniotic membrane rupture type: Spontaneous Amniotic fluid description: Clear Delivery Data Onset of labor date: 12/24/24 Onset of labor time: 20:43 Complete dilation date: 12/25/24 Complete dilation time: 07:00 [place] delivery date: 12/25/24 delivery time: 09:58 Placenta delivery date: 12/25/24 Placenta delivery time: 09:59 Stage 1 total time: Labor - Stage 1 Duration 10 hours and 17 minutes Delivered by: Surendra Delivery nurse: Yaw Barrera nurse: Corine CALVERT Coroner at delivery: No Support person(s) at delivery: FOB Other staff at delivery: Arpita Tay manager credit collections Method Delivery method: Normal Vaginal Delivery Presentation: Vertex Anesthesia Type Anesthesia Type: Epidural Placenta Placenta delivery description: Spontaneous Episiotomy Episiotomy description: Right Mediolateral Perineal repair Sutures used for repair: other (2-0 Vicryl) EBL Estimated blood loss (ml): 300 [place] Data (Serrano) Data order: 1 [place]'s gender: Male weight (gms): 2350 g Weight (pounds): 5 lbs and 2.9 ozs [place] length: 43.5 cm 1 minute: 0 5 minutes: 0
[2024-12-25] MEDS: IBUPROFEN TAB 400 MG TABLET 800 MG PO ×2 (11:02→22:24)
[2024-12-25] MEDS: ceFAZolin/D5W 2 GM IV 2 GM/100 ML BAG IV ×2 (11:22→22:20)
[2024-12-26 00:16] VITALS: BP 99/59; PULSE 87; RESP 16; TEMP 36.9; O2SAT 96
[2024-12-26 04:44] VITALS: BP 96/60; PULSE 74; RESP 16; TEMP 36.4; O2SAT 97
[2024-12-26 06:03] LABS: Basophils # (Auto) 0.0 Thou/mm3 (0.0-0.2); Basophils % (Auto) 0 % (0-2.5); Eosinophils # (Auto) 0.1 Thou/mm3 (0.0-0.5); Eosinophils % (Auto) 1 % (0-10); Hematocrit 25.8 % (36.0-46.0); Hemoglobin 8.8 g/dL (12.0-16.0); Immature Granulocytes Auto 0.06 Thou/mm3 (0.00-0.00); Lymphocytes # (Auto) 1.7 Thou/mm3 (1.0-4.8); Lymphocytes % (Auto) 16 % (10-50); Mean Corpuscular HGB Conc 34.1 g/dl (31.0-37.0); Mean Corpuscular Hemoglobin 32.1 pg (25.0-35.0); Mean Corpuscular Volume 94 fL (80-100); Monocytes # (Auto) 0.7 Thou/mm3 (0.0-0.8); Monocytes % (Auto) 6 % (0-12); Neutrophils # (Auto) 8.2 Thou/mm3 (1.8-7.7); Neutrophils % (Auto) 77 % (37-80); Nucleated Red Blood Cell # 0.00 Thou/mm3 (0.00-0.00); Nucleated Red Blood Cell % 0 /100 WBC (0); Platelet Count 213 Thou/mm3 (140-440); RDW Standard Deviation 43.6 fL (36.4-46.3); Red Blood Count 2.74 Miln/mm3 (4.00-5.20); White Blood Count 10.8 Thou/mm3 (3.6-11.0)
[2024-12-26] MEDS: ceFAZolin/D5W 2 GM IV 2 GM/100 ML BAG IV (06:14)
[2024-12-26 07:30] VITALS: BP 114/74; PULSE 71; RESP 18; TEMP 36.6; O2SAT 99
[2024-12-26] MEDS: DOCUSATE SOD 100 MG CAPSULE PO (08:07)
--- NOTE | 2024-12-26 08:12 | PD.LDPPPRG ---
Subjective Subjective Interval history: Delivery type: , induction of labor for intrauterine demise with trisomy 21 fetus Patient doing well this morning. No acute complaints. Ambulating, tolerating p.o. and voiding without difficulty. HTN/Pre-Eclampsia screen: No chest pain, shortness of breath, headache, visual changes, epigastric or right upper quadrant pain. Breast-feeding, lochia diminishing. Bowel: Flatus+/ BM+ Exam Vital Signs Temp Pulse Resp BP Pulse Ox O2 Del Method 97.6 F 74 16 96/60 97 Room Air 12/26/24 04:44 12/26/24 04:44 12/26/24 04:44 12/26/24 04:44 12/26/24 04:44 12/26/24 04:44 Constitutional Constitutional: no acute distress Routine HEENT Exam Head: Present normocephalic and atraumatic Eye: Present EOMI and PERRL ENT: Present mucous membranes moist Routine Neck Exam Neck: Present supple and trachea midline Routine Respiratory Exam Respiratory: Present chest non-tender, lungs clear, normal breath sounds and no resp distress Routine Cardiovascular Exam Cardiovascular: Present RRR Routine Abdominal Exam Abdominal: Present soft and normoactive bowel sounds Routine Extremities Exam Extremities: Present full ROM Routine Skin Exam Skin: Present intact, dry and warm Routine Neurological Exam Neurological: Present alert, oriented X3 and CN II-XII intact Routine Psychiatric Exam Psychiatric: Present normal affect and normal thought process Objective Labs 12/26/24 05:25 Labs: Laboratory Results - last 24 hr 12/26/24 05:25 WBC 10.8 RBC 2.74 L Hgb 8.8 L D Hct 25.8 L MCV 94 MCH 32.1 MCHC 34.1 RDW Std Deviation 43.6 Plt Count 213 D Neut % (Auto) 77 Lymph % (Auto) 16 [place] % (Auto) 6 Eos % (Auto) 1 Baso % (Auto) 0 Neut # (Auto) 8.2 H Lymph # (Auto) 1.7 [place] # (Auto) 0.7 Eos # (Auto) 0.1 Baso # (Auto) 0.0 Immature Gran # (Auto) 0.06 H Absolute Nucleated RBC 0.00 Immature Gran % 1 H Nucleated RBC % 0 Assessment & Plan Problem List (1) Gestational diabetes mellitus: Status: Acute (2) Premature rupture of membranes, unspecified as to length of time between rupture and onset of labor, unspecified weeks of gestation: Status: Acute (3) cardiac anomaly affecting , antepartum: Status: Acute (4) Trisomy 21 of fetus in current [place] : Status: Acute (5) Vaginal delivery: Status: Acute Assessment and plan: 1. Continue routine /post-op care 2. Labs reviewed, cbc appropriate 3. Remove dressing/Barton 4. Encourage to ambulate, shower 5. Encourage PO intake, breast feeding Time Spent With Patient Time: Total time spent is greater than 50% in coordination of care (as documented) at patient's floor/unit and/or counseling patient:
--- NOTE | 2024-12-26 08:13 | PD.LDDS ---
DS: Providers Provider Date of admission: 12/23/24 18:38 Primary care physician: Physician No Primary/Family Admitting Provider: Srinivas Lora MD Attending Provider on Admission: Norman Agosto MD Attending Provider on DC: Norman Agosto MD Discharging Provider: Norman Agosto MD DS: Diagnosis Discharge Diagnosis (1) Vaginal delivery: Status: Acute Problem List Completed Was Problem List Reviewed/Reconciled?: Yes Summary/Hosp Course Brief History: Ludmila Russell is a 24-year-old at 35 weeks and 0 days gestation, presenting to [facility] for no movement since yesterday. The RN could not get heart tones. The patient had a STAT OB sonogram and confirmed no cardiac activity, 2478g, cephalic. The fetus was followed by [facility] for fetus with Trisomy 21 with multiple anomalies. An amniocentesis confirmed trisomy 21 (47xy+21). Extensive hydrops was noted, with massive bilateral pleural effusions, mediastinal shift compromising cardiac output, skin edema, tracheitis, mild polyhydramnios, mild bilateral ventriculomegaly, and a subjectively large liver. The patient underwent thoracocentesis on November 08, 2024, to address the pleural effusions. She reports having traveled to [place] twice for procedures to remove fluid from the baby's chest, affecting both the heart and lungs. A echocardiogram was also performed, revealing a possible ventricular septal defect (VSD), right heart enlargement. The patient is GDM A1. She denies any leaking or bleeding. She denies any fever. She denies any contractions Peripartum Data Delivery Method: Normal Vaginal Delivery Episiotomy Description: Right Mediolateral Time Spent with Patient Time attestation: Total time spent providing and/or coordinating discharge services: Exam Vital Signs Temp Pulse Resp BP Pulse Ox O2 Del Method 97.6 F 74 16 96/60 97 Room Air 12/26/24 04:44 12/26/24 04:44 12/26/24 04:44 12/26/24 04:44 12/26/24 04:44 12/26/24 04:44 Discharge Plan Plan Patient Disposition: HOME (Self Care) Patient condition on transfer: Stable Prescriptions/Referrals Prescriptions/Med Rec: New hydrocodone-acetaminophen 5-325 mg Tablet 1 tab PO Q6H MDD 4 PRN (Reason: Patient rated pain 7 to 8) 3 Days Qty: 12 0RF docusate sodium 100 mg Capsule 100 mg PO QDAY 30 Days Qty: 30 0RF ibuprofen 400 mg Tablet 800 mg PO Q8HR PRN (Reason: Pain Scale 4-6 (Moderate) 10 Days Qty: 40 0RF Continued (DME) Blood Glucose Test Strip See Rx Instructions miscellaneous .MEDSUPPLY Qty: 100 2RF Rx Instructions: As directed, 4 times a day (DME) lancets Misc See Rx Instructions miscellaneous .MEDSUPPLY Qty: 100 0RF Rx Instructions: As directed, 4 times a day (DME) blood-glucose meter Kit See Rx Instructions .MEDSUPPLY Qty: 1 0RF Rx Instructions: As directed, use 4 times a day Plus 29 mg iron- 1 mg tablet 1 tab PO QDAY 90 Days Qty: 90 2RF Referrals: Norman Agosto MD [Physician] - No Primary/Family,Physician [Primary Care Provider] - Patient/Caregiver Discharge Instructions Other Discharge Activity Instructions:: Hacer guevara con weems doctor en Education Materials: Loss Grieving, Stillbirth Print Language: Korean Stand Alone Forms: Jazlyn Award Info., Patient Portal Info Letter Discharge Order Discharge Orders: Discharge (Routine); Ordered 12/26/24 Ordered By: Norman Agosto Planned Discharge Date 12/26/24
--- NOTE | 2024-12-26 08:30 | PC.NURSE ---
Patient cleared james Mcgill in manager social responsibility
--- NOTE | 2024-12-26 08:45 | PC.CC ---
NILES, Pham morgan
--- NOTE | 2024-12-26 08:46 | PC.CC ---
Pham CAGE received a consult for demise. Pham CAGE made face to face contact with patient who appeared alert and oriented to self, location, and situation. RV MECHANIC, discussed limits of confidentiality. At bedside was patient's , Tony Ramires whom patient provided verbal consent to remain in the room during consult. Patient reports this was her first child. She reports that she has limited family here and her support system includes her . RV MECHANIC provided support to patient and who was at bedside. RV MECHANIC provided psychoeducation regarding baby blues and Post- Depression, as well as counseling groups at [facility], and [facility]. SW provided community resources: Warm Line and Crisis Line. RV MECHANIC provided patient with grief support resources as well. Patient reports she is able to ambulate independently and complete her own ADLs does not require any DME. RV MECHANIC provided update to NEHAL Brody.
== END 2024-12-26 09:36 | disposition home or self-care (01) | DRG 560 ==
PROVIDERS: Admitting Provider Specialist; Visit Provider Obstetrics & Gynecology
DX: O36.4XX0 Maternal care for intrauterine death, not applicable or unspecified (principal); Z3A.35 35 weeks gestation of pregnancy; Z37.1 Single stillbirth; O35.13X0 Maternal care for (suspected) chromosomal abnormality in fetus, Trisomy 21, not applicable or unspecified; O35.BXX0 Maternal care for other (suspected) fetal abnormality and damage, fetal cardiac anomalies, not applicable or unspecified; O36.8990 Maternal care for other specified fetal problems, unspecified trimester, not applicable or unspecified; O40.3XX0 Polyhydramnios, third trimester, not applicable or unspecified; O99.354 Diseases of the nervous system complicating childbirth; O99.52 Diseases of the respiratory system complicating childbirth; Q90.9 Down syndrome, unspecified; G93.89 Other specified disorders of brain; J04.10 Acute tracheitis without obstruction; O12.04 Gestational edema, complicating childbirth
CPT/HCPCS: 36415; 59409; 76805; 85025; 86780; 86850; 86900; 86901; 94762; J0689; J2590; J2795; J3010; J3490; J7120; A9270

== ENCOUNTER 2025-01-18 11:28 | Outpatient (AMB) | payer MEDICAID, SELFPAY ==
[2025-01-18 11:46] VITALS: BP 105/66; PULSE 71; RESP 16; TEMP 36.8; O2SAT 97; BMI 22.4
--- NOTE | 2025-01-18 11:46 | AMBOBPPN_ITS ---
Vital Signs 01/18/25 11:46 Height 1.5 m Height Method Stated Weight 50.576 kg Weight Measurement Method Standing Scale BMI 22.4 BP 105/66 Blood Pressure Source Automatic Cuff Blood Pressure Location Left Upper Arm Position Sitting Respiration 16 Pulse 71 Pulse Source Monitor Temp 98.2 F Temp Source Oral Pulse Oximetry (%) 97 Oxygen Delivery Method Room Air Allergies/Home Meds Allergies & Medications Allergies No Known Allergies Allergy (Verified 01/18/25 11:46) Medication Reconciliation norethindrone 1.5 mg-ethinyl estradiol 30 mcg(21)/iron 75 mg(7) tablet (Loestrin Fe 1.5/30 (28-Day)) 1 tab PO QDAY 84 days #84 tabs 01/18/25 [Rx] Intake Visit Data Collection New Patient or Established: Established Patient (seen at [facility] within 3 years) Reason for Visit:: Seen by Clinical Staff ONLY (RN/MA): No Beauty Specialist Required: Yes Beauty Specialist's name/title: VARINDER ESPINOZA Do You Feel Safe at Home: Yes Authorities Contacted: N/A PCP or OBGYN visit in last 3 months: Yes Hx Now: No Are you currently on any form of Control: No Pain Present Currently: No Pain Scale Used: Buchanan-Watson/Numerical Pain scale:: 0 Smoking Status Smoking Status: Never smoker 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: Past Medical History Past Medical History: No Hx Neurological Disorders, No Hx Cardiac Disorders, No Hx Blood Disorders, No Hx Gastrointestinal Disorders, No Hx Renal Disease, No Hx Diabetes Mellitus Type 1 and No Hx Diabetes Mellitus Type 2 Questionnaires Covid-19 Vaccine Questionnaire Has patient been vacinated for Covid-19 Have you been vacinated for Covid-19: Yes Social History Living Situation History Lives With: Family Housing: Apartment Tobacco History Smoking Status: Never smoker Alcohol History Alcohol Intake: Never Domestic Abuse History Do You Feel Safe at Home: Yes EPDS - PP Depression Screening [place] Pospartum Depression Screen I have been able to laugh and see the funny side of things: (1) Not quite so much now I have looked forward with enjoyment to things: (0) As much as I ever did I have blamed myself unnecessarily when things went wrong: (0) No, never I have been anxious or worried for no good reason: (0) No, not at all I have felt scared or panicky for no very good reason: (0) No, not at all Things have been getting on top of me: (0) No, I have been coping as well as ever I have been so unhappy that I have had difficulty sleeping: (0) No, not at all I have felt sad or miserable: (0) No, not at all I have been so unhappy that I have been crying: (1) Only occasionally The thought of harming myself has occurred to me: (0) Never EPDS completed yes Care OB Visit Log OB Flowsheet Initial Weight: Not Recorded Date -?-?-?-?-?-?-?-?-?-?-?-?- EGA Weight BP Alb Glu CTX Pres Fundal ht FHR Mov Dilation Station Effacement Hx Notes Visit Note 09/01/24 -?-?-?-?-?-?-?-?-?-?-?-?- 18w 6d 49.895 kg 99/85 167 . New OB visit. NIPT, labs, PNVs. . New OB visit. NIPT, Pr enatal labs, PNVs. Educated the patient on the importance o f care, including taking pren atal vitamins with folic acid, iron, and calcium. Emphasized avoiding alcohol, smoking, and certain medications. Discussed common symptoms like nausea and fatigue, advising small, frequent meals and adequate hydration. Explained the need for regular check-ups and recommended safe physical activities. Instructed on signs of complications, such as severe cramping or bleeding, and when to seek immediate medical attention. Highlighted the importance of a balanced diet and avoiding high-risk foods. Encouraged open communication about any concerns or questions. Encouraged keeping up with all appointments and tests. 09/28/24 -?-?-?-?-?-?-?-?-?-?-?-?- 22w 5d 52.163 kg 105/64 105/64 Ludmila Russell, 24 y/ o at 22w5d, presents with concern for fluid leakage. She previously screened positive for trisomy 21 via Maternity 21 test and was referred to [facility] at [facility]. On 09/20/2024, she underwent anatomy ultrasound and amniocentesis. Ultrasound findings included multiple anomalies concerning for trisomy 21, with cardiac, [employer], and skeletal abnormalities. A large left ovarian cyst was also identified. Patient reports her pants are wet, raising concern for possible PROM. She denies contractions or pain, and movement is reported as good. Awaiting amniocentesis and echo results. Plan: Send patient to labor and delivery for e valuation of suspected PROM, including FREDI and confirmatory testing Monitor for signs of labor or infection Follow up after October 04 following MFM con sultation and amniocentesis result review Await echocardiogram results from cardiology referral Continue surveillance of left ovarian cy st (currently simple, ~8 cm) Reinforce education on labor signs and precautions WALDEMAR Calculator Estimated Delivery Date Method Current WG Current Estimate 01/27/25 LMP (Certain) 39w 0d Other Estimates 01/27/25 Ultrasound #1 39w 0d Specific Issue/Plans Laboratory, Imaging, and Diagnostic Test Results - Date: 11/17/2024 - Limited ultrasound with ultrasound-guided amniocentesis: - hydrops - Massive bilateral pleural effusions - Mediastinal shift - Skin edema - Tracheitis - Mild polyhydramnios - Mild bilateral ventriculomegaly - Subjectively large liver - Amniocentesis: 47xy+21 (Trisomy 21 confirmed) - Date: 11/08/2024 - Thoracocentesis performed - echocardiogram: - Possible VSD - Right heart enlargement - Good ventricular function - Glucose tolerance test: - 2 out of 4 values abnormal (GDM diagnosis) HPI Interval History: Ludmila Mccloud presents for a visit following induction and delivery for demise at 34 weeks. The patient reports that she is doing well and has completed all necessary services related to the baby. She denies any current vaginal bleeding, indicating a positive progression in her recovery. The patient has not experienced her first menstrual period since delivery, which is expected at this stage. She is considering future family planning options and is open to starting control. The patient has no prior history of using contraceptives. Regarding her physical recovery, the patient inquired about the status of her stitches from the delivery. She was informed that the stitches are dissolvable and will be absorbed by her body within approximately 45 days from the procedure date. She is a female with an obstetric history of A0 L0. Her history includes induction and delivery for demise at 34 weeks gestation. 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 Exam General General Appearance: alert, in no apparent distress and healthy appearing Head Head exam: atraumatic Neck Neck exam: Present normal inspection and trachea midline Chest Chest inspection: Present normal inspection and symmetric chest wall rise External exam: Present normal external exam; Absent tenderness Neuro Neurological exam: Present oriented X3 Psych Psychiatric exam: Present normal affect and normal mood Office Procedures OB Clinic LOC & Office Proc's Nursing/Assessment Patient Status: Established Patient OB Clinic Nursing Assessment: Medication Reconciliation, Update PMH in EMR and Vital Signs OB Clinic Coordination of Care: Complex Care and Chronic Disease 1-5, Consent,records obtained, informed consent, Education Simp Pt/Fam, 1 Ins Authorization, Lab and Imaging orders, Results/Orders obtained and Staff clarify orders Established Patient Charge Established Patient Point Assignment: 120 Post Follow-up Visit Post Follow up Visit: Yes Assessment & Plan Diagnosis / Problem List (1) Routine Follow-Up: (2) Encounter for initial prescription of contraceptive pills: Status: Acute Plan Status Post Demise: - Patient is approximately 6 weeks following induction and delivery for demise at 34 weeks gestation. - Reports no current vaginal bleeding. - Perineal stitches expected to dissolve within 45 days post-procedure. Plan: - Anticipate return of menstruation in approximately 1 month. - Initiate oral contraceptive pills for 2-3 months: ? Cycle regulation and promotion of healing process ? Patient agreed to this plan - Prescribe oral contraceptive pills to be sent to [facility]. - Patient instructed to start as soon as medication is available for pickup. - No scheduled follow-up at this time. - Return to clinic as needed. Contraceptive Counseling: - Patient desires reliable contraception during recovery period. Plan: - Discuss contraceptive options compatible with current status. - Oral contraceptive pills prescribed for dual benefit of cycle regulation and contraception. - Reassess contraceptive needs as clinically indicated. (FP) Tobacco Smoking Status: Never smoker
== END 2025-01-18 11:54 | disposition home or self-care (01) ==
LOC: HODSOBC 11:28
PROVIDERS: Supervising Provider Obstetrics & Gynecology; Visit Provider Obstetrics & Gynecology
DX: Z39.2 Encounter for routine postpartum follow-up (principal); Z30.011 Encounter for initial prescription of contraceptive pills
CPT/HCPCS: 59430